=== PATIENT | male | born 1945 | race Caucasian/White ===

== ENCOUNTER 2023-07-10 10:32 | Outpatient (CLI) | payer OTHER | END 2023-07-10 23:59 | disposition home or self-care (01) | LOC: VAS 10:32 | PROVIDERS: ATTEND Chiropractor | DX: I73.9 Peripheral vascular disease, unspecified (principal) | CPT/HCPCS: 93922 ==

== ENCOUNTER 2025-02-15 17:04 | Inpatient (IN) | payer OTHER, MEDICARE ==
[~2025-02-15] VITALS: Ht 170.2 cm; Wt 90.8 kg
[2025-02-15 18:00] LABS: BASOPHILS % (AUTO) 0.4 % (0-1); EOSINOPHILS # (AUTO) 0.5 X10'3 (0-0.9); EOSINOPHILS % (AUTO) 4.7 % (0-6); HEMATOCRIT 33.1 % (42.0-52.0); HEMOGLOBIN 11.4 g/dl (14.0-17.9); LYMPHOCYTES # (AUTO) 1.6 X10'3 (1.1-4.8); LYMPHOCYTES % (AUTO) 15.5 % (21-51); MEAN CORPUSCULAR HGB CONC 34.5 g/dL (33.0-36.5); MEAN CORPUSCULAR VOLUME 95.8 FL (78-98); MEAN PLATELET VOLUME 7.7 FL (7.4-10.4); MONOCYTES # (AUTO) 0.5 X10'3 (0-0.9); MONOCYTES % (AUTO) 4.7 % (2-12); NEUTROPHILS # (AUTO) 7.7 X10'3 (1.8-7.7); NEUTROPHILS % (AUTO) 74.7 % (42-75); PLATELET COUNT 170 X10'3 (140-440); RED BLOOD COUNT 3.45 X10'6 (4.70-6.10); RED CELL DISTRIBUTION WIDTH 14.5 % (11.5-14.5); WHITE BLOOD COUNT 10.3 X10'3 (4.5-11.0)
[2025-02-15] MEDS: morphine 4 MG/ML inj SYRINge IV ONE (18:05)
[2025-02-15 18:17] LABS: ALANINE AMINOTRANSFERASE 26 U/L (12-78); ALBUMIN 3.4 G/DL (3.4-5.0); ALBUMIN/GLOBULIN RATIO 1.2 (1.1-1.5); ALKALINE PHOSPHATASE 102 IU/L (46-116); ANION GAP 11 (8-16); ASPARTATE AMINO TRANSFERASE 21 U/L (10-37); BILIRUBIN,TOTAL 0.3 MG/DL (0.1-1.0); BLOOD UREA NITROGEN 35 MG/DL (7-18); BUN/CREATININE RATIO 21.5 (10.0-20.0); CALCIUM 8.6 MG/DL (8.5-10.1); CHLORIDE 109 MMOL/L (99-107); CREATININE 1.63 MG/DL (0.60-1.10); GLUCOSE 114 MG/DL (70-104); SODIUM 145 MMOL/L (135-145); TOTAL CARBON DIOXIDE 24.9 MMOL/L (24-32); TOTAL PROTEIN 6.2 G/DL (6.4-8.2); eCRCL 33 ML/MIN; eGFR 41 ML/MIN
[2025-02-15 18:18] LABS: CREATINE KINASE 120 U/L (39-308)
[2025-02-15] MEDS ORDERED: magnesium sulf-water 4G/100mL 100 ML IV PRN (20:25)
[2025-02-15] MEDS ORDERED: potassium Cl 20 mEq SR tablet PO PRN ×2 (20:25)
[2025-02-15] MEDS ORDERED: magnesium sulf-water 2g/50mL 50 ML IV PRN (20:25)
[2025-02-15] MEDS ORDERED: mag hydrox/Alum hydrox/simeth 30ml oral suspension PO PRN (20:25)
[2025-02-15] MEDS ORDERED: magnesium Cl slow-release 64mg tablet PO PRN (20:25)
[2025-02-15] MEDS ORDERED: ondansetron/PF 4mg/2ml inj IV PRN (20:25)
[2025-02-15] MEDS ORDERED: potassium Cl 40MEQ/1/2NS 520ml 520 ML IV PRN (20:25)
[2025-02-15] MEDS ORDERED: acetaminophen 325mg tablet PO PRN (20:25)
[2025-02-15] MEDS ORDERED: MEMA14CA5 PO (20:27)
[2025-02-15] MEDS ORDERED: CLON0.1T PO (20:27)
[2025-02-15] MEDS ORDERED: HYDR25TA90 PO (20:27)
[2025-02-15] MEDS ORDERED: HYDR-3686 PO (20:27)
[2025-02-15] MEDS ORDERED: METF-900 PO (20:27)
[2025-02-15] MEDS ORDERED: OLME5TAB32 PO (20:27)
[2025-02-15] MEDS ORDERED: ATOR10TA87 PO (20:27)
[2025-02-15] MEDS ORDERED: TERA2CAP4 PO (20:27)
[2025-02-15] MEDS ORDERED: CHLO25TA10 PO (20:27)
[2025-02-15] MEDS: Terazosin 1mg capsule PO SCH (21:31)
[2025-02-15] MEDS: normal saline 1000ml 1,000 ML IV SCH (21:34)
[2025-02-15 23:00] VITALS: BP 144/63; PULSE 16; RESP 16; TEMP 97.2; O2SAT 99
[2025-02-15 23:05] VITALS: RESP 16; O2SAT 97
[2025-02-16] VITALS (8 sets, daily range): BP systolic 103–152; BP diastolic 57–71; PULSE 58–70; RESP 12–16; TEMP 97.7–98.1; O2SAT 96–97
[2025-02-16] MEDS: morphine 2 MG/ML inj. syringe IV PRN (00:23)
[2025-02-16 05:43] LABS: BASOPHILS % (AUTO) 0.4 % (0-1); EOSINOPHILS # (AUTO) 0.6 X10'3 (0-0.9); EOSINOPHILS % (AUTO) 6.8 % (0-6); HEMATOCRIT 32.6 % (42.0-52.0); HEMOGLOBIN 11.2 g/dl (14.0-17.9); LYMPHOCYTES # (AUTO) 1.3 X10'3 (1.1-4.8); LYMPHOCYTES % (AUTO) 14.4 % (21-51); MEAN CORPUSCULAR HEMOGLOBIN 32.6 PG (27.0-31.0); MEAN CORPUSCULAR HGB CONC 34.4 g/dL (33.0-36.5); MEAN CORPUSCULAR VOLUME 94.8 FL (78-98); MEAN PLATELET VOLUME 8.1 FL (7.4-10.4); MONOCYTES # (AUTO) 0.8 X10'3 (0-0.9); MONOCYTES % (AUTO) 8.5 % (2-12); NEUTROPHILS # (AUTO) 6.5 X10'3 (1.8-7.7); NEUTROPHILS % (AUTO) 69.9 % (42-75); PLATELET COUNT 158 X10'3 (140-440); RED BLOOD COUNT 3.44 X10'6 (4.70-6.10); RED CELL DISTRIBUTION WIDTH 14.3 % (11.5-14.5); WHITE BLOOD COUNT 9.3 X10'3 (4.5-11.0)
[2025-02-16 06:08] LABS: ALANINE AMINOTRANSFERASE 27 U/L (12-78); ALBUMIN 3.2 G/DL (3.4-5.0); ALBUMIN/GLOBULIN RATIO 1.2 (1.1-1.5); ALKALINE PHOSPHATASE 86 IU/L (46-116); ANION GAP 9 (8-16); ASPARTATE AMINO TRANSFERASE 17 U/L (10-37); BILIRUBIN,TOTAL 0.6 MG/DL (0.1-1.0); BLOOD UREA NITROGEN 32 MG/DL (7-18); BUN/CREATININE RATIO 21.6 (10.0-20.0); CALCIUM 8.5 MG/DL (8.5-10.1); CHLORIDE 109 MMOL/L (99-107); CREATININE 1.48 MG/DL (0.60-1.10); GLUCOSE 123 MG/DL (70-104); MAGNESIUM 1.6 MG/DL (1.5-2.4); POTASSIUM 4.1 MMOL/L (3.5-5.1); SODIUM 144 MMOL/L (135-145); TOTAL PROTEIN 5.9 G/DL (6.4-8.2); eCRCL 37 ML/MIN; eGFR 46 ML/MIN
[2025-02-16] MEDS ORDERED: ceFAZolin 1000mg inj ONE (06:48)
[2025-02-16] MEDS: atorvastatin 10mg tablet PO SCH (07:04)
[2025-02-16] MEDS: losartan 50mg tablet PO SCH (07:04)
[2025-02-16] MEDS: docusate sod 100mg capsule PO SCH (07:04)
[2025-02-16] MEDS: cloNIDine 0.1 mg tablet PO SCH (07:05)
[2025-02-16] MEDS: hyDRALAzine 10mg tablet PO SCH (07:05)
[2025-02-16] MEDS: memantine 5mg tablet PO SCH (07:05)
[2025-02-16] MEDS: K and/or MAG REPLACEMENT MC SCH (07:10)
[2025-02-16 07:59] LABS: INR 1.2 INR; PROTHROMBIN TIME 11.9 SECONDS (9.0-12.0)
[2025-02-16] MEDS: HYDROcodone/acetaminophen 5mg/325mg tablet PO PRN (12:43)
[2025-02-16] MEDS ORDERED: oxyCODONE/APAP 5-325mg tablet PO PRN (13:55)
[2025-02-16] MEDS ORDERED: HYDROmorphone inj. 0.5 MG/0.5 ML DISP.SYRIN IV PRN (13:55)
[2025-02-16] MEDS: HYDROmorphone 1 mg/ml syringe IV PRN (14:12)
[2025-02-16] MEDS: oxyCODONE/APAP 10/325mg tablet PO PRN (18:02)
[2025-02-16] MEDS: heparin, porcine 5000 units/ml vial SQ SCH (22:01)
[2025-02-17 05:52] LABS: BASOPHILS % (AUTO) 0.4 % (0-1); EOSINOPHILS # (AUTO) 0.9 X10'3 (0-0.9); EOSINOPHILS % (AUTO) 10.1 % (0-6); HEMATOCRIT 35.3 % (42.0-52.0); HEMOGLOBIN 11.8 g/dl (14.0-17.9); LYMPHOCYTES # (AUTO) 1.5 X10'3 (1.1-4.8); LYMPHOCYTES % (AUTO) 16.4 % (21-51); MEAN CORPUSCULAR HEMOGLOBIN 32.9 PG (27.0-31.0); MEAN CORPUSCULAR HGB CONC 33.6 g/dL (33.0-36.5); MEAN CORPUSCULAR VOLUME 97.9 FL (78-98); MONOCYTES # (AUTO) 0.7 X10'3 (0-0.9); MONOCYTES % (AUTO) 7.3 % (2-12); NEUTROPHILS # (AUTO) 5.9 X10'3 (1.8-7.7); NEUTROPHILS % (AUTO) 65.8 % (42-75); PLATELET COUNT 117 X10'3 (140-440); RED CELL DISTRIBUTION WIDTH 14.6 % (11.5-14.5)
[2025-02-17 06:00] VITALS: BP 141/69; PULSE 61; RESP 16; TEMP 98.3; O2SAT 96
[2025-02-17 06:15] LABS: ALANINE AMINOTRANSFERASE 18 U/L (12-78); ALBUMIN 3.2 G/DL (3.4-5.0); ALBUMIN/GLOBULIN RATIO 1.1 (1.1-1.5); ALKALINE PHOSPHATASE 78 IU/L (46-116); ANION GAP 11 (8-16); ASPARTATE AMINO TRANSFERASE 18 U/L (10-37); BILIRUBIN,TOTAL 0.7 MG/DL (0.1-1.0); BLOOD UREA NITROGEN 24 MG/DL (7-18); CALCIUM 8.5 MG/DL (8.5-10.1); CHLORIDE 106 MMOL/L (99-107); CREATININE 1.33 MG/DL (0.60-1.10); GLUCOSE 120 MG/DL (70-104); MAGNESIUM 1.5 MG/DL (1.5-2.4); POTASSIUM 4.1 MMOL/L (3.5-5.1); SODIUM 141 MMOL/L (135-145); TOTAL CARBON DIOXIDE 23.6 MMOL/L (24-32); TOTAL PROTEIN 6.2 G/DL (6.4-8.2); eCRCL 41 ML/MIN; eGFR 52 ML/MIN
[2025-02-17 09:00] VITALS: RESP 16; O2SAT 96
[2025-02-17 10:00] VITALS: BP 110/63; PULSE 74; RESP 13; TEMP 98.5; O2SAT 93
[2025-02-17 18:00] VITALS: BP 124/64; PULSE 64; RESP 16; TEMP 98; O2SAT 96
[2025-02-17 22:00] VITALS: BP 109/54; PULSE 76; RESP 16; TEMP 99.1; O2SAT 97
[2025-02-18 04:18] LABS: BASOPHILS % (AUTO) 0.4 % (0-1); EOSINOPHILS # (AUTO) 0.9 X10'3 (0-0.9); EOSINOPHILS % (AUTO) 9.7 % (0-6); HEMATOCRIT 33.6 % (42.0-52.0); HEMOGLOBIN 11.6 g/dl (14.0-17.9); LYMPHOCYTES % (AUTO) 20.9 % (21-51); MEAN CORPUSCULAR HGB CONC 34.5 g/dL (33.0-36.5); MEAN CORPUSCULAR VOLUME 95.6 FL (78-98); MEAN PLATELET VOLUME 7.8 FL (7.4-10.4); NEUTROPHILS # (AUTO) 5.8 X10'3 (1.8-7.7); PLATELET COUNT 169 X10'3 (140-440); RED BLOOD COUNT 3.52 X10'6 (4.70-6.10); RED CELL DISTRIBUTION WIDTH 14.2 % (11.5-14.5); WHITE BLOOD COUNT 9.8 X10'3 (4.5-11.0)
[2025-02-18 04:33] LABS: ALANINE AMINOTRANSFERASE 16 U/L (12-78); ALKALINE PHOSPHATASE 80 IU/L (46-116); ANION GAP 7 (8-16); ASPARTATE AMINO TRANSFERASE 14 U/L (10-37); BILIRUBIN,TOTAL 0.7 MG/DL (0.1-1.0); BLOOD UREA NITROGEN 27 MG/DL (7-18); BUN/CREATININE RATIO 17.8 (10.0-20.0); CALCIUM 8.3 MG/DL (8.5-10.1); CHLORIDE 108 MMOL/L (99-107); CREATININE 1.52 MG/DL (0.60-1.10); GLUCOSE 121 MG/DL (70-104); MAGNESIUM 1.7 MG/DL (1.5-2.4); POTASSIUM 4.1 MMOL/L (3.5-5.1); SODIUM 141 MMOL/L (135-145); TOTAL CARBON DIOXIDE 25.7 MMOL/L (24-32); eCRCL 36 ML/MIN; eGFR 44 ML/MIN
[2025-02-18 06:00] VITALS: BP 148/77; PULSE 70; RESP 16; TEMP 97.6; O2SAT 96
[2025-02-18] MEDS: magnesium hydroxide 30ml (MOM) UD suspension PO PRN (07:36)
[2025-02-18 07:57] VITALS: RESP 16; O2SAT 96
[2025-02-18 10:00] VITALS: BP 101/64; PULSE 74; RESP 16; TEMP 97.5; O2SAT 95
[2025-02-18] MEDS ORDERED: AMLO5TAB16 PO ×2 (14:17→17:54)
[2025-02-18 16:15] VITALS: RESP 18
[2025-02-18] MEDS ORDERED: HYDR-3965 PO (17:52)
== END 2025-02-18 16:25 | disposition home health service (06) | DRG 535 ==
LOC: ER 17:04 → ED HOLD 20:29 → ORTHO 4S 23:01
PROVIDERS: ADMIT Internal Medicine; ATTEND Family Medicine
PROC: BW2G1ZZ Computerized Tomography (CT Scan) of Pelvic Region using Low Osmolar Contrast (ICD-10-PCS; principal; 2025-02-15)
DX: S72.114A Nondisplaced fracture of greater trochanter of right femur, initial encounter for closed fracture (principal); N17.0 Acute kidney failure with tubular necrosis; E86.0 Dehydration; N40.0 Benign prostatic hyperplasia without lower urinary tract symptoms; I15.8 Other secondary hypertension; E11.9 Type 2 diabetes mellitus without complications; I10 Essential (primary) hypertension; E78.5 Hyperlipidemia, unspecified; W18.39XA Other fall on same level, initial encounter; Y93.89 Activity, other specified; Y92.89 Other specified places as the place of occurrence of the external cause; Y99.8 Other external cause status; Z79.84 Long term (current) use of oral hypoglycemic drugs; Z79.899 Other long term (current) drug therapy; Z87.891 Personal history of nicotine dependence
CPT/HCPCS: 36415; 71045; 72192; 73502; 73700; 80053; 82550; 82948; 83036; 83735; 85025; 85610; 86885; 86900; 86901; 87081; 93005; 96361; 96374; 97110; 97116; 97161; 97530; 99285; A6212; A6213; A6250; A6258; G0378; J0690; J1171; J1644; J2270; J7030